=== PATIENT | male | born 1950 | race Caucasian/White ===

== ENCOUNTER → 2017-01-27 | Outpatient (CLI) | payer BC | END | disposition home or self-care (01) | LOC: GMAL 10:38 | PROVIDERS: ATTEND Family Medicine | DX: Z00.01 Encounter for general adult medical examination with abnormal findings (principal); R97.20 Elevated prostate specific antigen [PSA] ==

== ENCOUNTER → 2017-04-27 | Outpatient (CLI) | payer BC | END | disposition home or self-care (01) | LOC: GMAL 10:20 | PROVIDERS: ATTEND Family Medicine | DX: D51.3 Other dietary vitamin B12 deficiency anemia (principal) ==

== ENCOUNTER → 2017-07-27 | Outpatient (CLI) | payer BC | LOC: SL 20:34 | PROVIDERS: ATTEND Family Medicine | DX: G47.33 Obstructive sleep apnea (adult) (pediatric) (principal) ==

== ENCOUNTER → 2017-10-26 | Outpatient (CLI) | payer BC | LOC: GMAL 11:01 | PROVIDERS: ATTEND Family Medicine | DX: D51.3 Other dietary vitamin B12 deficiency anemia (principal); R97.20 Elevated prostate specific antigen [PSA]; E55.9 Vitamin D deficiency, unspecified; E78.4 Other hyperlipidemia; I10 Essential (primary) hypertension ==

== ENCOUNTER → 2018-04-19 | Outpatient (CLI) | payer BC | LOC: GMAL 11:00 | PROVIDERS: ATTEND Family Medicine | DX: Z00.00 Encounter for general adult medical examination without abnormal findings (principal); R97.20 Elevated prostate specific antigen [PSA] ==

== ENCOUNTER → 2019-01-09 | Outpatient (CLI) | payer BC | LOC: GMAF 22:46 | PROVIDERS: ATTEND Nurse Practitioner Family | DX: N30.01 Acute cystitis with hematuria (principal) ==

== ENCOUNTER → 2019-03-22 | Outpatient (CLI) | payer BC ==
--- NOTE | 2019-03-22 17:21 | CT ---
EXAM DESCRIPTION: Abdomen/Pelvis w/wo Contrast: Computed Tomography. CLINICAL HISTORY: RLQ PAIN COMPARISON: CT scan of the abdomen and pelvis without IV contrast September 2011. TECHNIQUE: Spiral-axial scans at 5 x 5 mm intervals through the abdomen and pelvis before and after 75 mL Optiray 320 nonionic IV contrast. No oral contrast. Coronal and sagittal 2.0 mm reconstructions. 5 mm Delayed helical-axial scans, liver through the pubic symphysis. No adverse reactions. Total Exam DLP 4306.85 mGy - cm. This exam was performed according to our departmental CT dose-optimization program which includes automated exposure control, adjustment of the mA and/or kV according to patient size and/or use of iterative reconstruction technique; to reduce radiation dose to as low as reasonably achievable (ALARA). FINDINGS: Lung bases and pleura: Negative. Liver, Stomach, Spleen, Adrenal Glands: Unremarkable. Pancreas, Gallbladder, Ducts: Gallbladder not visualized and no surgical clips. No fluid in the gallbladder fossa. Common bile duct minimally prominent. Kidneys and Ureters: 6.7 x 7.6 x 5.0 cm cyst in the right renal pelvis with mass effect on the kidney. Mild enlargement since the prior study. 2 cm cyst lateral left kidney. No radiodense stones or hydronephrosis. No contrast in the urinary bladder on delayed view. Mesentery: Unremarkable. Aorta: Minimal atherosclerotic calcifications. Small Bowel: Normal caliber. Minimal gas. Terminal Ileum/Cecum: Fecal matter. Cecum and TI in the mid right abdomen appendix not seen. Colon: Fecal material throughout the colon with no significant distention or air-fluid levels. Possible diverticula descending colon and sigmoid more numerous distally. No complications. Pelvic Organs: No IV contrast in the urinary bladder on the delayed view. Prostate gland impressing on the base of the urinary bladder and the seminal vesicles difficult to evaluate due to beam hardening artifact from right hip prosthesis. 5.5 x 3.7 cm. No fluid in the cul-de-sac. Spine and Bony Pelvis: Lumbar lordosis and scoliosis of the lumbar spine. Right total hip arthroplasty since the prior study. 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 Abdominal Wall/Back Soft Tissues: Diastases umbilicus but not containing bowel. Fatty left inguinal hernia not containing bowel. Stable since the prior study. IMPRESSION: 1. Unremarkable abdomen and pelvis CT scan with no free fluid or free air, no inflammatory changes in the mesentery, and no peritoneal or retroperitoneal masses. Slight progression of diverticulosis of the colon with no complications. 2. Bilateral renal cysts with mild enlargement of the right renal cyst since the prior study. This cyst demonstrates mass effect on the mid collecting system. 3. Prostate gland is enlarged since the prior study with more mass effect on the urinary bladder and seminal vesicles. 4. Progressive lumbar spondylosis and scoliosis since the prior study. Introduction of right total hip arthroplasty since the prior study. Electronically signed by: Dick Weber MD 03/22/2019 5:20 PM [facility]
== END ==
LOC: CT 08:00
PROVIDERS: ATTEND Family Medicine
DX: K57.30 Diverticulosis of large intestine without perforation or abscess without bleeding (principal); N40.0 Benign prostatic hyperplasia without lower urinary tract symptoms; N28.1 Cyst of kidney, acquired; M47.896 Other spondylosis, lumbar region; M41.86 Other forms of scoliosis, lumbar region; I10 Essential (primary) hypertension; Z96.641 Presence of right artificial hip joint

== ENCOUNTER → 2019-07-21 | Outpatient (CLI) | payer BC | DX: R97.20 Elevated prostate specific antigen [PSA] (principal); R53.83 Other fatigue; I10 Essential (primary) hypertension; E78.5 Hyperlipidemia, unspecified ==

== ENCOUNTER → 2019-12-05 | Outpatient (CLI) | payer MEDICARE | LOC: GMAJ 14:19 | PROVIDERS: ATTEND Family Medicine | DX: R53.83 Other fatigue (principal); Z79.899 Other long term (current) drug therapy ==